=== PATIENT | female | born 1985 | race Caucasian/White ===

== ENCOUNTER 2021-03-13 08:07 | Emergency (ER) | payer OTHER, SELFPAY ==
[2021-03-13 08:16] VITALS: BP 123/76; PULSE 102; RESP 18; TEMP 37.1; O2SAT 100
[2021-03-13 08:25] VITALS: BP 123/76; PULSE 102; RESP 18; TEMP 37.1; O2SAT 100
[2021-03-13] MEDS: ONDANSETRON HCL ODT 4 MG TABLET PO (08:40)
--- NOTE | 2021-03-13 08:41 | ED.NAVMDI ---
HPI - Nausea/Vomiting/Diarrhea General Chief complaint: Nausea/Vomiting/Diarrhea Stated complaint: Headache, Loose Stools, Fatigue Source: patient and RN notes reviewed Limitations: no limitations History of Present Illness HPI Narrative: The patient, previously mostly healthy non-smoker/nondrinker, presents with diarrhea and vomiting. Patient states she has a shorter, half week history of concurrent onset of vomiting x3-5, associated with diarrhea 1-3 times/day. She reports fever at onset of 101, associated myalgias with headache, infraumbilical cramping. No travel, sick family, frequency/urgency/dysuria , RLQ pain . She has had Covid last year no sore throat, cough. Advised to go to higher-level care facility to higher level testing if not improved , because for early diagnosis of serious problems [appendicitis, etc], clear specific symptoms do not develop until later Related Data Allergies Allergy/AdvReac Type Severity Reaction Status Date / Time Sulfa (Sulfonamide Allergy Intermediate Hives Verified 03/13/21 08:24 Antibiotics) codeine Allergy Mild Nausea and Verified 03/13/21 08:24 Vomiting Review of Systems Review of Systems: Narrative: General/Constitutional: No weight loss,fever Eyes: N0: Redness,discharge Ears/Nose/Throat: No: Epistaxis,ear discharge Respiratory: Denies: Hemoptysis Gastrointestinal: REPORTS vomiting, no bleeding-rectal Skin: No Lumps, eruption Neurologic: No Focal Weakness,Sz Hematologic: Denies: Petechiae/Purpura Psychiatric: No: Suicida ideationl All Other Systems: Reviewed and Negative [facility] Family History Family History (Updated 05/20/14 @ 07:13 by DOCTOR UNKNOWN) Mother Family history of hypothyroidism Grandparent Hypertension Family history of coronary artery disease Social History Social History Smoking status: Never smoker Alcohol intake: current Comments At time of signature, agree with nursing past medical, surgical, social and family history. There is no relevant family history pertinent to the presenting complaint Exam Narrative: Exam Narrative: General Appearance: Well appearing, No distress, Conjunctiva clear Ears: External ear normal Nose: Normal nose Mouth/Throat: Normal appearing, Normal lips, Supple Respiratory: Airway patent, No respiratory distress Cardiovascular: RRR, tachy Abdomen: Soft, Non-tender, no surgical /peritoneal signs Musculoskeletal: Full ROM Skin: Warm, Dry Neurological: A&O x3, CN II-X intact Psychiatric: Normal mood, Normal affect Course Vital Signs Vital signs: Vital Signs Temperature 98.8 F 03/13/21 08:16 Pulse Rate 102 H 03/13/21 08:16 Respiratory Rate 18 03/13/21 08:16 Blood Pressure 123/76 03/13/21 08:16 Pulse Oximetry 100 03/13/21 08:16 Temperature 98.8 F 03/13/21 08:25 Pulse Rate 102 H 03/13/21 08:25 Respiratory Rate 18 03/13/21 08:25 Blood Pressure 123/76 03/13/21 08:25 Pulse Oximetry 100 03/13/21 08:25 MDM - Nausea/Vomiting/Diarrhea Lab Data Labs: Lab Results 03/13/21 Range/Units 08:42 POC SARS CoV-2 Ag Negative (Negative) Discharge Plan Discharge Clinical Impression: Nausea, vomiting and diarrhea Patient Disposition: Home, Self-Care Condition: Improved Instructions: Acute Nausea and Vomiting (ED) Additional Instructions: Advised to go to higher-level care facility to higher level testing if not improved , because for early diagnosis of serious problems [appendicitis, etc], clear specific symptoms do not develope until later Prescriptions: New ondansetron HCl [Zofran] 4 mg tablet 4 mg PO BID 1 Days Qty: 5 RF: 0 diphenoxylate-atropine [Lomotil] 2.5-0.025 mg tablet 1 tablet PO DAILY PRN (Reason: diarrhea) Qty: 5 RF: 0 promethazine-codeine 6.25-10 mg/5 mL syrup 5 - 7.5 ml PO BID PRN (Reason: pain) Qty: 118 RF: 0 Follow-up/Referrals: Giovanni Day MD [Primary Care Provider] - Stand Alone Forms
== END 2021-03-13 09:10 | disposition home or self-care (01) ==
PROVIDERS: Emergency Provider Emergency Medicine; PCP Family Medicine
DX: R11.2 Nausea with vomiting, unspecified (principal); R19.7 Diarrhea, unspecified
CPT/HCPCS: 87426; 99213; A9270; C9803; G0463